=== PATIENT | female | born 1950 | race Caucasian/White ===

== ENCOUNTER 2022-04-23 19:29 | Inpatient (IN) | payer MEDICARE, SELFPAY ==
[2022-04-23 20:01] VITALS: BP 124/84; PULSE 93; RESP 18; TEMP 36.3; O2SAT 98
[2022-04-23 20:35] VITALS: O2SAT 99
--- NOTE | 2022-04-23 20:37 | ED.GENADULT ---
HPI - General Adult General Time Seen by Provider: 20:37 Date Seen: 04/23/22 Chief complaint: Abdominal Pain Stated complaint: stomach pain, vomiting Time Seen by Provider: 04/23/22 20:36 Source: patient Mode of arrival: ambulatory Limitations: no limitations History of Present Illness HPI narrative: 71-year-old female who comes in today with abdominal pain and vomiting. This started 2 days ago. Abdominal pain started 1st followed by vomiting in eating. Patient thinks her last bowel movement was a couple days ago. No blood in. Pain is in the low abdomen mostly but is diffuse. No urinary symptoms. Denies chest pain, shortness of breath, lightheadedness or dizziness. Related Data Home Medications Medication Instructions Recorded Confirmed No Known Home Medications 04/23/22 04/23/22 Allergies Allergy/AdvReac Type Severity Reaction Status Date / Time No Known Drug Allergies Allergy Verified 04/23/22 20:05 [facility] Social History Smoking Status: Never smoker Do you use any of these nicotine containing products: None How often do you have a drink containing alcohol: monthly or less AUDIT-C Alcohol total score: 1 Non-prescribed substance use: denies use service: No Exam Narrative: Exam Narrative: General: Well-developed and well-nourished, no acute distress Head: Atraumatic and normocephalic Eyes: Pupils are equal reactive, extraocular motions intact, conjunctiva clear ENT: External nose and ears are normal, posterior pharynx without erythema or exudate Neck: No midline cervical tenderness, full spontaneous range of motion the neck, trachea midline, no adenopathy Heart: Regular rate and rhythm no murmurs or thrills Lungs: Clear to auscultation bilaterally without wheezes or crackles Abdomen: High-pitched bowel sounds, diffuse tenderness, mild distention Musculoskeletal: No tenderness, deformity, or edema Neurologic: Awake, alert, and oriented x3, no gross focal neurologic deficits, cranial nerves intact as tested Psych: Mood and affect are appropriate Skin: No rashes Const: Vital Signs, click to edit/add: Vital Signs - 24 hr 04/23/22 20:01 Temperature 97.3 F L Pulse Rate [Left F emoral] 93 Respiratory Rate 18 Blood Pressure [Ri ght Upper Arm] 124/84 Pulse Oximetry 98 Oxygen Delivery Me thod Room Air Course Course Hospital Course: Patient seen examined, no prior records available. Presents with abdominal pain and vomiting. Differential diagnosis includes but not limited to acute cholecystitis, bowel obstruction, pancreatitis, diverticulitis, colitis. Patient with history of resection ofintestinal mass?, presents with abdominal pain vomiting. High-pitched bowel sounds with diffuse tenderness. Concern for bowel obstruction. Dilaudid, labs, Zofran, and CT scan are ordered Reevaluation(s) Reevaluation #1: Labs independently interpreted by me demonstrate normal white blood cell count, normal hemoglobin. Total bilirubin is slightly elevated but lipase and remaining hepatic function panel are reassuring. CT scan urinalysis are pending. Time: 21:24 Reevaluation #2: CT scan independently interpreted by me demonstrates small-bowel obstruction. Will plan to admit patient for further evaluation and treatment. Time: 21:43 Reevaluation #3: Radial interpretation CT scan agrees with my initial interpretation. Patient will be admitted for further evaluation and treatment. Care discussed with Dr. Murray, General surgery as well as Dr. Mccabe, hospitalist for admission. Time: 22:35 Vital Signs Vital signs: Initial Vital Signs Temperature 97.3 F L 04/23/22 20:01 Temperature Source Temporal Artery Scan 04/23/22 20:01 Pulse Rate 93 04/23/22 20:01 Pulse Rhythm 04/23/22 20:01 Respiratory Rate 18 04/23/22 20:01 Blood Pressure 124/84 04/23/22 20:01 Blood Pressure Mean 97 04/23/22 20:01 Blood Pressure Position Sitting 04/23/22 20:01 Pulse Oximetry 98 04/23/22 20:01 Oxygen Delivery Method 04/23/22 20:01 Vital Signs Temperature 97.3 F L 04/23/22 20:01 Pulse Rate 93 04/23/22 20:01 Respiratory Rate 18 04/23/22 20:01 Blood Pressure 124/84 04/23/22 20:01 Pulse Oximetry 98 04/23/22 20:01 Oxygen Delivery Method 04/23/22 20:01 Temperature 97.3 F L 04/23/22 20:01 Pulse Rate 93 04/23/22 20:01 Respiratory Rate 18 04/23/22 20:01 Blood Pressure 124/84 04/23/22 20:01 Pulse Oximetry 98 04/23/22 20:01 Oxygen Delivery Method 04/23/22 20:01 Medical Decision Making Lab Data Labs: Lab Results 04/23/22 04/23/22 Range/Units 20:44 20:44 WBC 7.16 (4.50-11.00) K/uL RBC 5.00 (4.00-5.20) m/uL Hgb 15.6 (12.0-16.0) gm/dL Hct 44.7 (33.0-51.0) % MCV 89 (80-100) fL MCH 31 (26-34) pg MCHC 35 (32-36) gm/dL RDW Coeff of Nadeem 11.9 (11.5-15.5) % Plt Count 228 (140-440) K/uL Neut % (Auto) 71.4 (42.0-72.0) % Lymph % (Auto) 13.8 L (20-44) % Grand % (Auto) 14.5 H (0.0-11.0) % Eos % (Auto) 0.1 (0.0-7.0) % Baso % (Auto) 0.1 (0.0-3.0) % Neut # (Auto) 5.10 (1.7-7.0) K/uL Lymph # (Auto) 1.00 (0.90-2.90) K/uL [place] # (Auto) 1.00 H (0.00-0.90) K/UL Eos # (Auto) 0.01 (0.00-0.50) K/uL Baso # (Auto) 0.01 (0.00-0.30) K/uL Sodium 135 (135-149) mmol/L Potassium 4.0 (3.6-5.1) mmol/L Chloride 98 (96-114) mmol/L Carbon Dioxide 28 (20-32) mmol/L BUN 18 (7-30) mg/dL Creatinine 0.7 (0.5-1.5) mg/dL Estimated GFR 93 ml/min Glucose 140 H (60-115) mg/dL Calcium 9.8 (8.4-10.6) mg/dL Total Bilirubin 2.2 H (0.1-1.5) mg/dL Direct Bilirubin 0.0 (0.0-0.5) mg/dL AST 21 (12-35) U/L ALT 17 (4-35) U/L Alkaline Phosphatase 86 (40-150) U/L Total Protein 8.0 (6.0-8.3) g/dL Albumin 4.6 (3.3-5.0) g/dL Lipase 55 (23-300) U/L Discharge Plan Discharge Clinical Impression: SBO (small bowel obstruction) Patient Disposition: Admitted As Inpatient
--- NOTE | 2022-04-23 20:47 | CRLHL7_ITS ---
For Patients: As a result of the Century Cures Act, medical imaging exams and procedure reports are released immediately into your electronic medical record. You may view this report before your referring provider. If you have questions, please contact your health care provider. INDICATION: Abdominal pain, vomiting. TECHNIQUE: CT abdomen and pelvis acquired with 70 cc Isovue 370 IV contrast. COMPARISON: CT abdomen 11/24/2019. FINDINGS: Lower chest: Unremarkable. Liver: Unremarkable. Normal in size and attenuation. No suspicious masses. Gallbladder and bile ducts: Unremarkable. No stones or inflammation. No biliary dilatation. Pancreas: Unremarkable. No mass or inflammation. Spleen: Unremarkable. Normal in size. No masses. Adrenal glands: Unremarkable. No nodules. Kidneys: Unremarkable. No suspicious masses, stones, or hydronephrosis. GI tract: Status post right hemicolectomy. Multiple dilated loops of small bowel with air-fluid levels with transition point in the right lower quadrant in the region of the ileocolonic anastomosis (series 2, image 81). The distal small bowel and colon are decompressed. No evidence of perforation or pneumatosis. Small hiatal hernia. Diverticulosis. Vasculature: Normal caliber abdominal aorta with mild atherosclerotic calcification. Mesenteric arteries are patent. Lymph nodes: No lymphadenopathy. Peritoneum/Abdominal Wall: Small amount ascites. Pelvis: Unremarkable. Bones: Multilevel degenerative changes of the spine. Chronic anterior compression fracture of the T12 vertebral body. IMPRESSION: Small-bowel obstruction in the setting of prior right hemicolectomy. Transition point in the right lower quadrant in the region of the ileocolonic anastomosis. No perforation or pneumatosis. Please note that all CT scans at this facility use dose modulation, iterative reconstruction, and/or weight-based dosing when appropriate to reduce radiation dose to as low as reasonably achievable. Dictated by Zachary Sifuentes MD @ 04/23/2022 10:24:57 PM (Electronically Signed)
[2022-04-23] MEDS: ONDANSETRON 2 MG/ML inj 4 MG IVP (20:56)
[2022-04-23] MEDS: HYDROmorphone 0.5 mg/0.5 ml inj IVP (20:56)
[2022-04-23 21:06] LABS: Basophils Absolute Auto 0.01 K/uL (0.00-0.30); Basophils Percent Auto 0.1 % (0.0-3.0); Eosinophils Absolute Auto 0.01 K/uL (0.00-0.50); Eosinophils Percent Auto 0.1 % (0.0-7.0); Hematocrit 44.7 % (33.0-51.0); Hemoglobin* 15.6 gm/dL (12.0-16.0); Immature Granulocytes Abs Auto 0.01 K/uL (0.00-0.30); Immature Granulocytes Pct Auto 0.1 %; Lymphocytes Percent Auto 13.8 % (20-44); Mean Corpuscular HGB Conc 35 gm/dL (32-36); Mean Corpuscular Hemoglobin 31 pg (26-34); Mean Corpuscular Volume 89 fL (80-100); Monocytes Percent Auto 14.5 % (0.0-11.0); Neutrophils Percent Auto 71.4 % (42.0-72.0); Platelet Count* 228 K/uL (140-440); RDW Coefficient of Variation % 11.9 % (11.5-15.5); White Blood Count* 7.16 K/uL (4.50-11.00)
[2022-04-23 21:07] LABS: Slide Review Reflex No
[2022-04-23 21:12] LABS: Albumin* 4.6 g/dL (3.3-5.0); Chloride* 98 mmol/L (96-114); Sodium* 135 mmol/L (135-149)
[2022-04-23 21:14] LABS: Creatinine* 0.7 mg/dL (0.5-1.5); Estimated Glomerular Filt Rate 93 ml/min
[2022-04-23 21:15] LABS: Alkaline Phosphatase* 86 U/L (40-150); Aspartate Amino Transferase* 21 U/L (12-35); Bilirubin Total* 2.2 mg/dL (0.1-1.5); Blood Urea Nitrogen* 18 mg/dL (7-30); Carbon Dioxide* 28 mmol/L (20-32); Glucose* 140 mg/dL (60-115); Lipase* 55 U/L (23-300)
[2022-04-23 21:16] LABS: Alanine Aminotransferase* 17 U/L (4-35); Calcium* 9.8 mg/dL (8.4-10.6)
[2022-04-23 22:13] LABS: Appearance Urine Clear (Clear); Bilirubin Urine Negative (Negative); Blood Urine Negative (Negative); Color Urine Yellow (Yellow); Glucose Urine Negative (Negative); Ketones Urine 2+ (Negative); Leukocyte Esterase Urine Negative (Negative); Nitrite Urine Negative (Negative); Protein Urine Trace (Negative); Urobilinogen Urine 0.2 (0.2-1.0)
[2022-04-23 22:29] LABS: RBC Urine 0-2 (0-2); Squamous Epithelial Cell Urine Few (None-Few); WBC Urine 0-2 (0-5)
--- NOTE | 2022-04-23 22:46 | ED.NURSE ---
Med Surg called and report given on Room 6. Pt transporting to room 270 at this time. Pt has all belongings with her and will leave once patient is settled in room.
--- NOTE | 2022-04-23 23:30 | P.IMHP_ITS ---
Hospitalist- H&P: HPI History of Present Illness Time Seen by Provider: 23:00 Date Seen: 04/23/22 Chief complaint: stomach pain, vomiting Narrative: Catrachita Roman is a 71 year old woman who presents with 2 days of abdominal pain and subsequent nausea and vomiting. Describes abdominal pain as being low but diffuse. Last bowel movement was 2 days ago on Sunday morning. Has not had constipation, diarrhea, or any blood loss. Denies dysuria, urgency, frequency, hematuria. Denies chest heaviness, pressure, tightness, or pain. Denies cough, dyspnea at rest, paroxysmal nocturnal dyspnea, orthopnea. Denies syncope or near-syncope. Denies palpitations or chest fluttering. Denies fevers, rigors, diaphoresis. Denies weight gain or weight loss. Denies night sweats. Patient and her , Chris, flew back to their home in [place] from [place] this past Sunday, 2 days ago, after the onset of the pain. They had intended to participate in their daughter's surprise birthday alliance party and then fly back to [place] 2 days from now, this coming Sunday. Pain has not improved. She finally decided to come in for further assessment. CT scan in the emergency department demonstrates small bowel obstruction with transition point in the right lower quadrant in the region of the ileocolonic anastomosis. Patient has not previously had bowel obstruction. Review of Systems Status of ROS: Reports: 10 or more systems reviewed and unremarkable except as noted in History and below Narrative: Generally healthy. Independent in all activities. Enjoying her retired life with her retired . They rented house in [place] for 3 months, and have been living in their rented house until they came back now briefly to surprise their daughter for her birthday. Unfortunately they were not able to surprised her with the patient's abdominal pain nausea and vomiting, and thus patient is here in the hospital at this time. Denies polyuria, polydipsia, polyphagia. Denies heat or cold intolerance. No recent trauma or injury. Air travel as specified above. No signs or symptoms of deep venous thrombosis or pulmonary embolism. No recent illnesses. No focal motor neurologic deficits. Denies myalgias or arthralgias. Does not take any [id number] medications. Designates her , Chris, as her power of business attorney for health should that be required. Requests full resuscitation in the event of cardiopulmonary demise. Does not have a primary care physician at this time. 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 Surgical History History of toe surgery Status post LASIK surgery Status post partial colectomy Social History Smoking Status: Never smoker Do you use any of these nicotine containing products: None How often do you have a drink containing alcohol: monthly or less AUDIT-C Alcohol total score: 1 Non-prescribed substance use: denies use service: No Meds Home Medications and Allergies Home Medications Medication Instructions Recorded Confirmed Type No Known Home Medications 04/23/22 04/23/22 History Allergies Allergy/AdvReac Type Severity Reaction Status Date / Time No Known Drug Allergies Allergy Verified 04/23/22 20:05 Exam Narrative: Exam Narrative: Appears comfortable when I see her. No acute distress. Indicates that the opioid analgesics she received greatly relieved her symptoms. Does not have a nasogastric tube in place. Alert, oriented to self, place, time, situation. Friendly, cooperative, articulate. Mood and affect are congruent. Vision and hearing are grossly normal. No icterus or jaundice. Midline nasal septum. Dentition in fair repair. Dry buccal mucosa. Supple neck. Midline trachea. Normal thyroid. No JVD, hepatojugular reflux, carotid bruits. No lymphadenopathy. Lungs are clear to auscultation without wheezing, rhonchi, or rales. No CVA tenderness. Heart tones with regular rhythm, normal S1-S2, without murmur, gallop, or rub. PMI is not laterally displaced. Thin abdomen, moderately distended. Hyper tympany. Tinkles and rushes on auscultation. Minimal subjective discomfort without rebound or guarding. Palpable pulses upper and lower extremities. No lower extremity edema. No rashes, petechiae, cyanosis. No focal motor neurologic deficits. No tremor, asterixis, or ataxia. Independent in transfer, station, and gait. Const: Vital Signs, click to edit/add: Vital Signs - 24 hr 04/23/22 20:01 Temperature 97.3 F L Pulse Rate [Left F emoral] 93 Respiratory Rate 18 Blood Pressure [Ri ght Upper Arm] 124/84 Pulse Oximetry 98 Oxygen Delivery Me thod Room Air Documenting provider has reviewed patient's vital signs: yes Hospitalist - H&P: Result Labs Labs: Short CBC 04/23/22 Range/Units 20:44 WBC 7.16 (4.50-11.00) K/uL Hgb 15.6 (12.0-16.0) gm/dL Hct 44.7 (33.0-51.0) % Plt Count 228 (140-440) K/uL BMP 04/23/22 20:44 Sodium 135 Potassium 4.0 Chloride 98 Carbon Dioxide 28 BUN 18 Creatinine 0.7 Glucose 140 H Calcium 9.8 Liver Function 04/23/22 Range/Units 20:44 Total Bilirubin 2.2 H (0.1-1.5) mg/dL Direct Bilirubin 0.0 (0.0-0.5) mg/dL AST 21 (12-35) U/L ALT 17 (4-35) U/L Alkaline Phosphatase 86 (40-150) U/L Albumin 4.6 (3.3-5.0) g/dL Urine 04/23/22 Range/Units 22:05 Urine Color Yellow (Yellow) Urine Appearance Clear (Clear) Urine pH 7.0 (5.0-8.5) Ur Specific [place] 1.010 (1.000-1.030) Urine Protein Trace A (Negative) Urine Glucose (UA) Negative (Negative) Imaging CT scan - abdomen: Attestation: I have reviewed the pertinent imaging results. Radiologist's impression: Small-bowel obstruction with transition point in right lower quadrant, at site of ileocolonic anastomosis. Assessment and Plan Assessment and plan (1) SBO (small bowel obstruction): Problem comment: Most likely due to and she usually is from partial colectomy in 2010 for tubulovillous adenoma of the colon an incidental resection of a serous cystadenoma of the ovary. Status: Acute Plan 1. Reviewed impression with patient and her . 2. Answered their questions. 3. General surgery, Dr. Boston, has been consulted. 4. Conservative measures including NPO, IV fluids, analgesics, antiemetics. Will attempt to hold off on NG tube for now. 5. Will advance diet slowly as deemed possible per her clinical status. 6. Nonpharmacologic venous thromboembolism prophylaxis efforts including ambulation. 7. Patient and are agreeable to above stated plans and recommendations at this juncture.
[2022-04-23 23:33] VITALS: BP 137/77; PULSE 68; RESP 16; TEMP 36.6; O2SAT 94; BMI 23.5
[2022-04-24] VITALS (8 sets, daily range): BP systolic 106–151; BP diastolic 54–75; PULSE 63–82; RESP 16–18; TEMP 36.4–36.9; O2SAT 92–97
[2022-04-24 01:09] LABS: SARS PCR* Negative SARS-CoV-2 (Negative)
[2022-04-24] MEDS: 0.9 % SODIUM CHLORIDE 1000 ml 1,000 ML IV (01:37)
[2022-04-24] MEDS: LACTATED RINGERS 1000 ML 1,000 ML 125 ML IV ×3 (02:39→18:04)
--- NOTE | 2022-04-24 06:34 | PC.NURSE ---
VSS on RA. Patient is alert and oriented x3, able to call help. Pt denies pain, last pain meds at ED. Independent with transfers, continent of bowel and bladder; no BM this shift. IV fluid infusing @125ml/h.
[2022-04-24 06:41] LABS: Lactate* 0.8 mmol/L (0.5-1.9)
[2022-04-24 06:48] LABS: Eosinophils Absolute Auto 0.02 K/uL (0.00-0.50); Eosinophils Percent Auto 0.4 % (0.0-7.0); Hematocrit 37.4 % (33.0-51.0); Hemoglobin* 12.7 gm/dL (12.0-16.0); Lymphocytes Percent Auto 18.6 % (20-44); Mean Corpuscular HGB Conc 34 gm/dL (32-36); Mean Corpuscular Hemoglobin 31 pg (26-34); Mean Corpuscular Volume 92 fL (80-100); Monocytes Percent Auto 17.7 % (0.0-11.0); Neutrophils Absolute Auto 3.43 K/uL (1.7-7.0); Neutrophils Percent Auto 63.3 % (42.0-72.0); Platelet Count* 188 K/uL (140-440); RDW Coefficient of Variation % 12.2 % (11.5-15.5); Red Blood Count 4.07 m/uL (4.00-5.20); White Blood Count* 5.42 K/uL (4.50-11.00)
[2022-04-24 06:59] LABS: Slide Review Reflex No
[2022-04-24 07:14] LABS: Albumin* 3.5 g/dL (3.3-5.0); Chloride* 104 mmol/L (96-114); Sodium* 137 mmol/L (135-149)
[2022-04-24 07:15] LABS: Potassium* 4.2 mmol/L (3.6-5.1)
[2022-04-24 07:17] LABS: Creatinine* 0.6 mg/dL (0.5-1.5); Estimated Glomerular Filt Rate 97 ml/min
[2022-04-24 07:18] LABS: Alanine Aminotransferase* 13 U/L (4-35); Alkaline Phosphatase* 57 U/L (40-150); Aspartate Amino Transferase* 18 U/L (12-35); Bilirubin Total* 1.4 mg/dL (0.1-1.5); Blood Urea Nitrogen* 16 mg/dL (7-30); Calcium* 8.5 mg/dL (8.4-10.6); Carbon Dioxide* 30 mmol/L (20-32); Glucose* 105 mg/dL (60-115); Lipase* 110 U/L (23-300)
[2022-04-24 07:21] LABS: C Reactive Protein* 3.9 mg/dL (0.5-1.0)
--- NOTE | 2022-04-24 07:58 | P.IMPN_ITS ---
Progress Note: A&P Assessment and plan (1) SBO (small bowel obstruction): Problem details: - history of partial colectomy in 2010 for tubulovillous adenoma of the colon + incidental resection of a serous cystadenoma of the ovary - patient remains NPO, has not required NG placement at this time - general surgery aware of patient, appreciate their assistance Status: Acute Plan - per above - SCDs, Sixto richards, ambulation for ppx Subjective Date Seen: 04/24/22 Interval history: Catrachita was admitted last night for an SBO. She has had no further nausea or vomiting upon arrival to the floor, did not require NG placement. She has not yet passed flatus. No concerns for hospitalist team. Exam Narrative: Exam Narrative: GEN: Alert and sitting comfortably in bed, nontoxic HEENT: Normal external ears, EOMIs bilaterally, no scleral icterus CV: RRR, No concerning murmurs, rubs, or gallops R: LCTA bilaterally without concerning wheezing, rales, or rhonchi Ab: Moderate distention, hypoactive bowel sounds throughout Ext: wwp, no concerning edema Skin: No concerning skin lesions or rashes on exposed skin Neuro: Nonfocal Psych: Appropriate Const: Vital Signs, click to edit/add: Vital Signs - 24 hr 04/23/22 20:01 04/23/22 23:33 04/23/22 23:33 Temperature 97.3 F L 97.8 F Pulse Rate [Left F emoral] 93 Pulse Rate [Right] 68 Respiratory Rate 18 16 Blood Pressure [Le ft Arm] 137/77 Blood Pressure [Ri ght Upper Arm] 124/84 Pulse Oximetry 98 94 Oxygen Delivery Me thod Room Air Room Air Room Air 04/24/22 03:00 Temperature 98.4 F Pulse Rate [Left F emoral] Pulse Rate [Right] 70 Respiratory Rate 16 Blood Pressure [Le ft Arm] 117/67 Blood Pressure [Ri ght Upper Arm] Pulse Oximetry 95 Oxygen Delivery Me thod Room Air Labs Labs: Laboratory Results - last 24 hr 04/23/22 04/23/22 04/23/22 20:44 20:44 22:05 WBC 7.16 RBC 5.00 Hgb 15.6 Hct 44.7 MCV 89 MCH 31 MCHC 35 RDW Coeff of Nadeem 11.9 Plt Count 228 Neut % (Auto) 71.4 Lymph % (Auto) 13.8 L [place] % (Auto) 14.5 H Eos % (Auto) 0.1 Baso % (Auto) 0.1 Neut # (Auto) 5.10 Lymph # (Auto) 1.00 [place] # (Auto) 1.00 H Eos # (Auto) 0.01 Baso # (Auto) 0.01 Sodium 135 Potassium 4.0 Chloride 98 Carbon Dioxide 28 BUN 18 Creatinine 0.7 Estimated Creat Clear Estimated GFR 93 Glucose 140 H Lactate Calcium 9.8 Total Bilirubin 2.2 H Direct Bilirubin 0.0 AST 21 ALT 17 Alkaline Phosphatase 86 C-Reactive Protein Total Protein 8.0 Albumin 4.6 Lipase 55 Urine Color Yellow Urine Appearance Clear Urine pH 7.0 Ur Specific [place] 1.010 Urine Protein Trace A Urine Glucose (UA) Negative Urine Ketones 2+ A Urine Blood Negative Urine Nitrite Negative Urine Bilirubin Negative Urine Urobilinogen 0.2 Ur Leukocyte Esterase Negative Urine RBC 0-2 Urine WBC 0-2 Ur Squamous Epith Cells Few Urine Bacteria None SARS-CoV-2 (PCR) 04/24/22 04/24/22 04/24/22 00:24 05:55 05:55 WBC 5.42 RBC 4.07 Hgb 12.7 Hct 37.4 MCV 92 MCH 31 MCHC 34 RDW Coeff of Nadeem 12.2 Plt Count 188 Neut % (Auto) 63.3 Lymph % (Auto) 18.6 L [place] % (Auto) 17.7 H Eos % (Auto) 0.4 Baso % (Auto) 0.0 Neut # (Auto) 3.43 Lymph # (Auto) 1.00 [place] # (Auto) 1.00 H Eos # (Auto) 0.02 Baso # (Auto) 0.00 Sodium 137 Potassium 4.2 Chloride 104 Carbon Dioxide 30 BUN 16 Creatinine 0.6 Estimated Creat Clear 49.00 Estimated GFR 97 Glucose 105 Lactate Calcium 8.5 Total Bilirubin 1.4 Direct Bilirubin 0.0 AST 18 ALT 13 Alkaline Phosphatase 57 C-Reactive Protein 3.9 H Total Protein 6.0 Albumin 3.5 Lipase 110 Urine Color Urine Appearance Urine pH Ur Specific [place] Urine Protein Urine Glucose (UA) Urine Ketones Urine Blood Urine Nitrite Urine Bilirubin Urine Urobilinogen Ur Leukocyte Esterase Urine RBC Urine WBC Ur Squamous Epith Cells Urine Bacteria SARS-CoV-2 (PCR) Negative SARS-CoV-2 04/24/22 05:55 WBC RBC Hgb Hct MCV MCH MCHC RDW Coeff of Nadeem Plt Count Neut % (Auto) Lymph % (Auto) [place] % (Auto) Eos % (Auto) Baso % (Auto) Neut # (Auto) Lymph # (Auto) [place] # (Auto) Eos # (Auto) Baso # (Auto) Sodium Potassium Chloride Carbon Dioxide BUN Creatinine Estimated Creat Clear Estimated GFR Glucose Lactate 0.8 Calcium Total Bilirubin Direct Bilirubin AST ALT Alkaline Phosphatase C-Reactive Protein Total Protein Albumin Lipase Urine Color Urine Appearance Urine pH Ur Specific [place] Urine Protein Urine Glucose (UA) Urine Ketones Urine Blood Urine Nitrite Urine Bilirubin Urine Urobilinogen Ur Leukocyte Esterase Urine RBC Urine WBC Ur Squamous Epith Cells Urine Bacteria SARS-CoV-2 (PCR) INDICATION: Abdominal pain, vomiting. TECHNIQUE: CT abdomen and pelvis acquired with 70 cc Isovue 370 IV contrast. COMPARISON: CT abdomen 11/24/2019. FINDINGS: Lower chest: Unremarkable. Liver: Unremarkable. Normal in size and attenuation. No suspicious masses. Gallbladder and bile ducts: Unremarkable. No stones or inflammation. No biliary dilatation. Pancreas: Unremarkable. No mass or inflammation. Spleen: Unremarkable. Normal in size. No masses. Adrenal glands: Unremarkable. No nodules. Kidneys: Unremarkable. No suspicious masses, stones, or hydronephrosis. GI tract: Status post right hemicolectomy. Multiple dilated loops of small bowel with air-fluid levels with transition point in the right lower quadrant in the region of the ileocolonic anastomosis (series 2, image 81). The distal small bowel and colon are decompressed. No evidence of perforation or pneumatosis. Small hiatal hernia. Diverticulosis. Vasculature: Normal caliber abdominal aorta with mild atherosclerotic calcification. Mesenteric arteries are patent. Lymph nodes: No lymphadenopathy. Peritoneum/Abdominal Wall: Small amount ascites. Pelvis: Unremarkable. Bones: Multilevel degenerative changes of the spine. Chronic anterior compression fracture of the T12 vertebral body. IMPRESSION: Small-bowel obstruction in the setting of prior right hemicolectomy. Transition point in the right lower quadrant in the region of the ileocolonic anastomosis. No perforation or pneumatosis. Please note that all CT scans at this facility use dose modulation, iterative reconstruction, and/or weight-based dosing when appropriate to reduce radiation dose to as low as reasonably achievable.
--- NOTE | 2022-04-24 11:26 | PM.GSCN ---
History of Present Illness Consult details Date Seen: 04/24/22 Consult date: 04/24/22 Narrative: 71-year-old female was admitted to the hospital with small-bowel obstruction and I was asked by Dr. Flores to see her in consultation. Patient states that on Sunday she woke up with lower abdominal pain that was described as crampy. She was flying home from [place] and the pain was bothering her the entire day. She vomited in the evening on Sunday. On Sunday she continued not to feel well and continued to have abdominal pain and nausea. She was not passing gas. Finally on Sunday she vomited again and decided to come to the emergency room because her pain was persistent. Patient had no prior episodes of small-bowel obstruction. Patient had a right hemicolectomy in 2009 for a large tubulovillous adenoma of the cecum. There was no evidence of malignancy. Patient's last colonoscopy was in April of 2020 and her anastomosis was patent. Two polyps were removed during that colonoscopy. In the emergency room patient was found to have normal WBC. An abdominal CT was obtained that showed evidence of right hemicolectomy with distended loops of small intestine proximal to her anastomosis. The radiology felt that transition point is somewhere near her anastomosis in the right lower quadrant. Since patient was admitted, her pain is better compared to yesterday. She still is not passing gas. 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 Surgical History (Updated 04/24/22 @ 11:30 by Anahi Boston MD) History of toe surgery Status post LASIK surgery Status post partial colectomy Social History Highest level of school completed/degree received: Bachelor's degree Smoking Status: Never smoker Do you use any of these nicotine containing products: None Second hand tobacco smoke exposure: No How often do you have a drink containing alcohol: monthly or less Alcohol type: beer How many standard drinks containing alcohol do you have on a typical day: 1 or 2 How often do you have six or more drinks on one occasion: Less than monthly AUDIT-C Alcohol total score: 2 Non-prescribed substance use: denies use Caffeine: Yes service: No Meds Home Medications and Allergies Home Medications Medication Instructions Recorded Confirmed Type No Known Home Medications 04/23/22 04/23/22 History Allergies Allergy/AdvReac Type Severity Reaction Status Date / Time No Known Drug Allergies Allergy Verified 04/23/22 20:05 Exam Narrative: Exam Narrative: General appearance: Alert, cooperative, and in no distress Pulmonary: Chest symmetric, breathing is nonlabored Gastrointestinal Abdominal: soft, mildly distended, tender to palpation near the umbilicus with no peritoneal signs. Skin: Normal skin color, texture, and turgor. No rashes or lesions. Psychiatric: Alert, cooperative, normal affect. Const: Vital Signs, click to edit/add: Vital Signs - 24 hr 04/23/22 20:01 04/23/22 23:33 04/23/22 23:33 Temperature 97.3 F L 97.8 F Pulse Rate [Left F emoral] 93 Pulse Rate [Right] 68 Respiratory Rate 18 16 Blood Pressure [Le ft Arm] 137/77 Blood Pressure [Ri ght Upper Arm] 124/84 Pulse Oximetry 98 94 Oxygen Delivery Me thod Room Air Room Air Room Air 04/24/22 03:00 Temperature 98.4 F Pulse Rate [Left F emoral] Pulse Rate [Right] 70 Respiratory Rate 16 Blood Pressure [Le ft Arm] 117/67 Blood Pressure [Ri ght Upper Arm] Pulse Oximetry 95 Oxygen Delivery Me thod Room Air Results Labs Labs: Abnormal lab results 04/23/22 04/23/22 04/23/22 Range/Units 20:44 20:44 22:05 Lymph % (Auto) 13.8 L (20-44) % [place] % (Auto) 14.5 H (0.0-11.0) % [place] # (Auto) 1.00 H (0.00-0.90) K/UL Glucose 140 H (60-115) mg/dL Total Bilirubin 2.2 H (0.1-1.5) mg/dL C-Reactive Protein (0.5-1.0) mg/dL Urine Protein Trace A (Negative) Urine Ketones 2+ A (Negative) 04/24/22 04/24/22 Range/Units 05:55 05:55 Lymph % (Auto) 18.6 L (20-44) % [place] % (Auto) 17.7 H (0.0-11.0) % [place] # (Auto) 1.00 H (0.00-0.90) K/UL Glucose (60-115) mg/dL Total Bilirubin (0.1-1.5) mg/dL C-Reactive Protein 3.9 H (0.5-1.0) mg/dL Urine Protein (Negative) Urine Ketones (Negative) Diabetes panel 04/23/22 04/24/22 Range/Units 20:44 05:55 Sodium 135 137 (135-149) mmol/L Potassium 4.0 4.2 (3.6-5.1) mmol/L Chloride 98 104 (96-114) mmol/L Carbon Dioxide 28 30 (20-32) mmol/L BUN 18 16 (7-30) mg/dL Creatinine 0.7 0.6 (0.5-1.5) mg/dL Glucose 140 H 105 (60-115) mg/dL Calcium 9.8 8.5 (8.4-10.6) mg/dL AST 21 18 (12-35) U/L ALT 17 13 (4-35) U/L Alkaline Phosphatase 86 57 (40-150) U/L Total Protein 8.0 6.0 (6.0-8.3) g/dL Albumin 4.6 3.5 (3.3-5.0) g/dL Calcium panel 04/23/22 04/24/22 Range/Units 20:44 05:55 Calcium 9.8 8.5 (8.4-10.6) mg/dL Albumin 4.6 3.5 (3.3-5.0) g/dL Pituitary panel 04/23/22 04/24/22 Range/Units 20:44 05:55 Sodium 135 137 (135-149) mmol/L Potassium 4.0 4.2 (3.6-5.1) mmol/L Chloride 98 104 (96-114) mmol/L Carbon Dioxide 28 30 (20-32) mmol/L BUN 18 16 (7-30) mg/dL Creatinine 0.7 0.6 (0.5-1.5) mg/dL Glucose 140 H 105 (60-115) mg/dL Calcium 9.8 8.5 (8.4-10.6) mg/dL Adrenal panel 04/23/22 04/24/22 Range/Units 20:44 05:55 Sodium 135 137 (135-149) mmol/L Potassium 4.0 4.2 (3.6-5.1) mmol/L Chloride 98 104 (96-114) mmol/L Carbon Dioxide 28 30 (20-32) mmol/L BUN 18 16 (7-30) mg/dL Creatinine 0.7 0.6 (0.5-1.5) mg/dL Glucose 140 H 105 (60-115) mg/dL Calcium 9.8 8.5 (8.4-10.6) mg/dL Total Bilirubin 2.2 H 1.4 (0.1-1.5) mg/dL AST 21 18 (12-35) U/L ALT 17 13 (4-35) U/L Alkaline Phosphatase 86 57 (40-150) U/L Total Protein 8.0 6.0 (6.0-8.3) g/dL Albumin 4.6 3.5 (3.3-5.0) g/dL All other labs normal. Assessment and Plan Assessment and plan (1) SBO (small bowel obstruction): Problem comment: - history of partial colectomy in 2010 for tubulovillous adenoma of the colon + incidental resection of a serous cystadenoma of the ovary - patient remains NPO, has not required NG placement at this time - general surgery aware of patient, appreciate their assistance Status: Acute Plan 71-year-old female admitted to the hospital with small-bowel obstruction. Discussed with the patient and her my clinical findings. Patient's pain is slightly improved when compared to yesterday. Her WBC continues to be normal. Patient denies passing gas. I would recommend to continue conservative treatment with NPO and IV fluids for now.
--- NOTE | 2022-04-24 18:30 | PC.NURSE ---
PATIENT PLEASANT AND COOPERATIVE, ALERT AND ORIENTED, UP IND WITH STEADY GAIT WALKING IN HALLWAYS, DECLINING PAIN USING AQUA K PAD NEEDED FOR COMFORT, NPO, TOLREATING ICE CHIPS, BOWEL SOUNDS ACTIVE EXPECT FOR IN LLQ ABSENT, DENIES PASSING GAS, DECLINING NAUSEA.
[2022-04-25] MEDS: LACTATED RINGERS 1000 ML 1,000 ML 125 ML IV ×3 (01:47→17:24)
[2022-04-25 01:53] VITALS: BP 124/68; PULSE 70; RESP 16; TEMP 36.9; O2SAT 94
--- NOTE | 2022-04-25 02:58 | PC.NURSE ---
Pt rested well this night. Up IND and walking halls. No N/V. Reporting zero pain. Afebrile. VS unremarkable. BS absent in Lower left Quad.
[2022-04-25 07:00] VITALS: BP 96/64; PULSE 69; RESP 16; TEMP 36.4; O2SAT 96
[2022-04-25 07:08] LABS: Basophils Percent Auto 0.3 % (0.0-3.0); Eosinophils Percent Auto 2.3 % (0.0-7.0); Hematocrit 35.3 % (33.0-51.0); Immature Granulocytes Pct Auto 0.5 %; Lymphocytes Percent Auto 20.6 % (20-44); Mean Corpuscular HGB Conc 34 gm/dL (32-36); Mean Corpuscular Hemoglobin 31 pg (26-34); Mean Corpuscular Volume 92 fL (80-100); Monocytes Percent Auto 15.9 % (0.0-11.0); Neutrophils Percent Auto 60.4 % (42.0-72.0); Platelet Count* 167 K/uL (140-440); RDW Coefficient of Variation % 11.7 % (11.5-15.5); Red Blood Count 3.85 m/uL (4.00-5.20); White Blood Count* 3.84 K/uL (4.50-11.00)
[2022-04-25 07:10] LABS: Slide Review Reflex No
[2022-04-25 07:22] LABS: Albumin* 3.2 g/dL (3.3-5.0); Chloride* 106 mmol/L (96-114)
[2022-04-25 07:23] LABS: Potassium* 3.7 mmol/L (3.6-5.1); Sodium* 137 mmol/L (135-149)
[2022-04-25 07:25] LABS: Alkaline Phosphatase* 58 U/L (40-150); Aspartate Amino Transferase* 17 U/L (12-35); Bilirubin Total* 1.5 mg/dL (0.1-1.5); Carbon Dioxide* 26 mmol/L (20-32); Creatinine* 0.6 mg/dL (0.5-1.5); Estimated Glomerular Filt Rate 97 ml/min; Total Protein* 5.6 g/dL (6.0-8.3)
[2022-04-25 07:26] LABS: Alanine Aminotransferase* 12 U/L (4-35); Blood Urea Nitrogen* 12 mg/dL (7-30); Calcium* 8.4 mg/dL (8.4-10.6); Glucose* 75 mg/dL (60-115)
--- NOTE | 2022-04-25 08:47 | PM.IMPN1 ---
Progress Note: A&P Assessment and plan (1) SBO (small bowel obstruction): Problem details: - history of partial colectomy in 2010 for tubulovillous adenoma of the colon + incidental resection of a serous cystadenoma of the ovary - patient remains NPO, has not required NG placement - ambulating - general surgery aware of patient, no surgical needs anticipated at this time Status: Acute Plan - per above - Lovenox for ppx Subjective Date Seen: 04/25/22 Interval history: Catrachita was admitted 04/23 for an SBO. She has not yet passed flatus, but is noting more noise from her abdomen. No nausea or vomiting, tolerating NPO status. Exam Narrative: Exam Narrative: GEN: Alert and sitting comfortably in bedside chair, nontoxic in appearance HEENT: Normal external ears, EOMIs bilaterally, no scleral icterus CV: RRR, No concerning murmurs, rubs, or gallops R: LCTA bilaterally without concerning wheezing, rales, or rhonchi Ab: Moderate distention, bowel sounds still hypoactive but improved from admission, Ext: wwp, no concerning edema Skin: No concerning skin lesions or rashes on exposed skin Neuro: Nonfocal Psych: Appropriate Const: Vital Signs, click to edit/add: Vital Signs - 24 hr 04/24/22 11:00 04/24/22 15:00 04/24/22 15:00 Temperature 98.2 F 97.9 F Pulse Rate [Right] 68 76 Respiratory Rate 18 16 16 Blood Pressure [Le ft Arm] 122/70 106/54 L Pulse Oximetry 93 92 92 Oxygen Delivery Me thod Room Air Room Air Room Air 04/24/22 19:33 04/24/22 22:16 04/24/22 22:53 Temperature 98.2 F 98.5 F Pulse Rate [Right] 82 63 63 Respiratory Rate 16 16 16 Blood Pressure [Le ft Arm] 151/75 H 137/74 Pulse Oximetry 96 97 Oxygen Delivery Me thod Room Air Room Air 04/24/22 22:55 04/25/22 01:53 04/25/22 07:00 Temperature 98.5 F Pulse Rate [Right] 70 Respiratory Rate 16 16 16 Blood Pressure [Le ft Arm] 124/68 Pulse Oximetry 97 94 96 Oxygen Delivery Me thod Room Air Room Air Room Air 04/25/22 07:00 Temperature 97.6 F Pulse Rate [Right] 69 Respiratory Rate 16 Blood Pressure [Le ft Arm] 96/64 Pulse Oximetry 96 Oxygen Delivery Me thod Room Air Labs Labs: Laboratory Results - last 24 hr 04/25/22 04/25/22 06:30 06:30 WBC 3.84 L RBC 3.85 L Hgb 12.0 Hct 35.3 MCV 92 MCH 31 MCHC 34 RDW Coeff of Nadeem 11.7 Plt Count 167 Neut % (Auto) 60.4 Lymph % (Auto) 20.6 [place] % (Auto) 15.9 H Eos % (Auto) 2.3 Baso % (Auto) 0.3 Neut # (Auto) 2.30 Lymph # (Auto) 0.80 L [place] # (Auto) 0.60 Eos # (Auto) 0.10 Baso # (Auto) 0.00 Sodium 137 Potassium 3.7 Chloride 106 Carbon Dioxide 26 BUN 12 Creatinine 0.6 Estimated Creat Clear 49.00 Estimated GFR 97 Glucose 75 Calcium 8.4 Total Bilirubin 1.5 AST 17 ALT 12 Alkaline Phosphatase 58 C-Reactive Protein 2.0 H Total Protein 5.6 L Albumin 3.2 L
[2022-04-25 10:51] VITALS: BP 95/61; PULSE 69; RESP 16; TEMP 36.5; O2SAT 94
[2022-04-25 15:00] VITALS: BP 154/73; PULSE 70; RESP 16; TEMP 36.5; O2SAT 70; O2SAT 96
--- NOTE | 2022-04-25 16:18 | PC.NURSE ---
PATIENT ALERT AND ORIENTED, PLEASANT AND COOPERATIVE, UP IND WITH STEADY GAIT, WALKING IN HALLWAYS THROUGHOUT SHIFT, TOOK A SHOWER TODAY, USING AQUA K PAD FOR DISCOMFORT OTHERWISE DECLINING PAIN, TOLERATING OCCASIONAL ICE CHIPS I'M USING THEM TO WET MT WHISTLE, BOWEL SOUNDS ACTIVE/HYPOACTIVE, PATIENT SATS AT TIMES SHE FEELS LIKE BURPING BUT NO PASSING OF FLATUS.
[2022-04-25 19:57] VITALS: BP 146/78; PULSE 72; RESP 18; TEMP 36.6; O2SAT 97
[2022-04-25 23:38] VITALS: BP 125/70; PULSE 75; RESP 16; TEMP 36.6; O2SAT 94
[2022-04-26] VITALS (7 sets, daily range): BP systolic 119–155; BP diastolic 69–76; PULSE 63–66; RESP 16–18; TEMP 36.5–37.1; O2SAT 94–97
[2022-04-26] MEDS: LACTATED RINGERS 1000 ML 1,000 ML 125 ML IV ×3 (01:22→17:26)
--- NOTE | 2022-04-26 04:58 | PC.NURSE ---
pt is A&O. NPO with only ice chips. Bowel sounds hypo active in all four quads. No reports of flatus or BM. LR running at 125. Independent in room. No c/o nausea or pain this shift. Pt only stated she had more of a discomfort in her abdomen. Refused Lovenox. Stated she is walking frequently down the green.
[2022-04-26 06:17] LABS: Eosinophils Percent Auto 1.8 % (0.0-7.0); Hematocrit 34.3 % (33.0-51.0); Hemoglobin* 11.9 gm/dL (12.0-16.0); Immature Granulocytes Pct Auto 1.5 %; Lymphocytes Percent Auto 22.5 % (20-44); Mean Corpuscular HGB Conc 35 gm/dL (32-36); Mean Corpuscular Hemoglobin 32 pg (26-34); Mean Corpuscular Volume 91 fL (80-100); Monocytes Percent Auto 17.1 % (0.0-11.0); Neutrophils Percent Auto 57.1 % (42.0-72.0); Platelet Count* 166 K/uL (140-440); RDW Coefficient of Variation % 11.5 % (11.5-15.5); Red Blood Count 3.76 m/uL (4.00-5.20); White Blood Count* 3.91 K/uL (4.50-11.00)
[2022-04-26 06:25] LABS: Albumin* 3.1 g/dL (3.3-5.0); Chloride* 105 mmol/L (96-114); Sodium* 137 mmol/L (135-149)
[2022-04-26 06:28] LABS: Bilirubin Total* 1.5 mg/dL (0.1-1.5); Creatinine* 0.6 mg/dL (0.5-1.5); Estimated Glomerular Filt Rate 97 ml/min
[2022-04-26 06:29] LABS: Alanine Aminotransferase* 14 U/L (4-35); Alkaline Phosphatase* 56 U/L (40-150); Aspartate Amino Transferase* 21 U/L (12-35); Blood Urea Nitrogen* 11 mg/dL (7-30); Calcium* 8.2 mg/dL (8.4-10.6); Carbon Dioxide* 25 mmol/L (20-32); Glucose* 68 mg/dL (60-115); Potassium* 3.8 mmol/L (3.6-5.1); Total Protein* 5.4 g/dL (6.0-8.3)
[2022-04-26 06:32] LABS: C Reactive Protein* 1.7 mg/dL (0.5-1.0)
[2022-04-26 07:56] LABS: Slide Review Reflex No
[2022-04-26] MEDS: SODIUM CHLORIDE 0.9 % (FLUSH) 10 ML SYRINGE 5 ML IVF ×2 (08:05→20:26)
--- NOTE | 2022-04-26 10:24 | PM.GSPN ---
Subjective Subjective Date Seen: 04/26/22 Interval history: Patient states that she had small amount of mucus, from her rectum. She denies passing gas or stool. She denies any nausea vomiting. She continues to be bloated. She is ambulating a lot. Took a shower today. Exam Narrative: Exam Narrative: Abdomen: Soft, distended, minimal discomfort to palpation throughout the abdomen with no peritoneal signs. Const: Vital Signs, click to edit/add: Vital Signs - 24 hr 04/25/22 10:51 04/25/22 15:00 04/25/22 15:00 Temperature 97.7 F 97.7 F Pulse Rate [Right] 69 70 Respiratory Rate 16 16 16 Blood Pressure [Le ft Arm] 95/61 154/73 H Pulse Oximetry 94 96 70 L Oxygen Delivery Me thod Room Air Room Air Room Air 04/25/22 19:57 04/25/22 23:38 04/25/22 23:38 Temperature 97.9 F 97.8 F Pulse Rate [Right] 72 75 Respiratory Rate 18 16 Blood Pressure [Le ft Arm] 146/78 H 125/70 Pulse Oximetry 97 94 94 Oxygen Delivery Me thod Room Air Room Air Room Air 04/26/22 03:21 04/26/22 07:45 04/26/22 07:45 Temperature 97.9 F 98.7 F Pulse Rate [Right] 65 63 Respiratory Rate 18 16 Blood Pressure [Le ft Arm] 145/76 H 119/69 Pulse Oximetry 96 94 94 Oxygen Delivery Me thod Room Air Room Air Room Air Progress Note: A&P Assessment and plan (1) SBO (small bowel obstruction): Problem details: - history of partial colectomy in 2010 for tubulovillous adenoma of the colon + incidental resection of a serous cystadenoma of the ovary - patient remains NPO, has not required NG placement - ambulating - general surgery aware of patient, no surgical needs anticipated at this time Status: Acute Assessment and Plan: 71-year-old female admitted to the hospital with small-bowel obstruction. Patient is doing well however there is no return of bowel function. Her WBC is normal. Her CRP is decreasing. We will continue with conservative therapy for now with NPO and IV fluids.
--- NOTE | 2022-04-26 12:37 | PM.IMPN1 ---
Progress Note: A&P Assessment and plan (1) SBO (small bowel obstruction): Problem details: - history of partial colectomy in 2010 for tubulovillous adenoma of the colon + incidental resection of a serous cystadenoma of the ovary - patient remains NPO, has not required NG placement - ambulating - general surgery aware of patient, appreciate their input. No surgical needs anticipated at this time Status: Acute Plan - per above - patient defers Lovenox for prophylaxis; is ambulating regularly and using Sixto hose + SCDs while in bed - home with spouse when bowel function returns Subjective Date Seen: 04/26/22 Interval history: Catrachita was admitted 04/23 for an SBO. She has been ambulating and performing ADLs without significant pain or nausea. She still has not yet passed flatus, but continues to note increased bowel sounds. Tolerating NPO status. Exam Narrative: Exam Narrative: GEN: Alert and oriented, nontoxic in appearance HEENT: Normal external ears, EOMIs bilaterally, no scleral icterus CV: RRR, No concerning murmurs, rubs, or gallops R: LCTA bilaterally without concerning wheezing, rales, or rhonchi Ab: Distended, hyperactive bowel sounds throughout Ext: wwp, no concerning edema Skin: No concerning skin lesions or rashes on exposed skin Neuro: Nonfocal Psych: Appropriate Const: Vital Signs, click to edit/add: Vital Signs - 24 hr 04/25/22 15:00 04/25/22 15:00 04/25/22 19:57 Temperature 97.7 F 97.9 F Pulse Rate [Right] 70 72 Respiratory Rate 16 16 18 Blood Pressure [Le ft Arm] 154/73 H 146/78 H Pulse Oximetry 96 70 L 97 Oxygen Delivery Me thod Room Air Room Air Room Air 04/25/22 23:38 04/25/22 23:38 04/26/22 03:21 Temperature 97.8 F 97.9 F Pulse Rate [Right] 75 65 Respiratory Rate 16 18 Blood Pressure [Le ft Arm] 125/70 145/76 H Pulse Oximetry 94 94 96 Oxygen Delivery Me thod Room Air Room Air Room Air 04/26/22 07:45 04/26/22 07:45 04/26/22 11:00 Temperature 98.7 F 97.9 F Pulse Rate [Right] 63 66 Respiratory Rate 16 16 Blood Pressure [Le ft Arm] 119/69 122/73 Pulse Oximetry 94 94 96 Oxygen Delivery Me thod Room Air Room Air Room Air Labs Labs: Laboratory Results - last 24 hr 04/26/22 04/26/22 06:02 06:02 WBC 3.91 L RBC 3.76 L Hgb 11.9 L Hct 34.3 MCV 91 MCH 32 MCHC 35 RDW Coeff of Nadeem 11.5 Plt Count 166 Neut % (Auto) 57.1 Lymph % (Auto) 22.5 [place] % (Auto) 17.1 H Eos % (Auto) 1.8 Baso % (Auto) 0.0 Neut # (Auto) 2.20 Lymph # (Auto) 0.90 [place] # (Auto) 0.70 Eos # (Auto) 0.10 Baso # (Auto) 0.00 Sodium 137 Potassium 3.8 Chloride 105 Carbon Dioxide 25 BUN 11 Creatinine 0.6 Estimated Creat Clear 49.00 Estimated GFR 97 Glucose 68 Calcium 8.2 L Total Bilirubin 1.5 AST 21 ALT 14 Alkaline Phosphatase 56 C-Reactive Protein 1.7 H Total Protein 5.4 L Albumin 3.1 L
[2022-04-26] MEDS: ENOXAPARIN 40 MG/0.4 ML INJ SUBCUT (20:24)
[2022-04-27] MEDS: LACTATED RINGERS 1000 ML 1,000 ML 125 ML IV (01:15)
[2022-04-27 03:00] VITALS: BP 129/69; PULSE 80; RESP 16; TEMP 36.6; O2SAT 95
[2022-04-27 06:40] LABS: Basophils Percent Auto 0.2 % (0.0-3.0); Eosinophils Percent Auto 1.2 % (0.0-7.0); Immature Granulocytes Pct Auto 1.2 %; Lymphocytes Percent Auto 19.5 % (20-44); Mean Corpuscular HGB Conc 34 gm/dL (32-36); Mean Corpuscular Hemoglobin 31 pg (26-34); Mean Corpuscular Volume 91 fL (80-100); Monocytes Percent Auto 17.1 % (0.0-11.0); Neutrophils Percent Auto 60.8 % (42.0-72.0); Platelet Count* 189 K/uL (140-440); RDW Coefficient of Variation % 11.7 % (11.5-15.5); Red Blood Count 3.86 m/uL (4.00-5.20); White Blood Count* 4.26 K/uL (4.50-11.00)
[2022-04-27 06:43] LABS: Slide Review Reflex No
--- NOTE | 2022-04-27 06:53 | PC.NURSE ---
VSS on Ra. Patient is alert and oriented x4, able to verbalize needs to staff. Denies pain on assessment. Pt is continent with bowel and bladder, no BM, was able to pass gas this morning. Independent and ambulates frequently. IN fluid infusing. Pt is stable, call light with in reach.
[2022-04-27 06:54] LABS: Chloride* 104 mmol/L (96-114); Sodium* 136 mmol/L (135-149)
[2022-04-27 06:56] LABS: Creatinine* 0.5 mg/dL (0.5-1.5); Estimated Glomerular Filt Rate 101 ml/min
[2022-04-27 06:57] LABS: Blood Urea Nitrogen* 9 mg/dL (7-30); Carbon Dioxide* 23 mmol/L (20-32); Glucose* 63 mg/dL (60-115)
[2022-04-27 07:00] LABS: C Reactive Protein* 1.2 mg/dL (0.5-1.0)
[2022-04-27 07:30] VITALS: BP 128/67; PULSE 60; RESP 16; TEMP 36.7; O2SAT 96
--- NOTE | 2022-04-27 07:55 | PM.GSPN ---
Subjective Subjective Date Seen: 04/27/22 Interval history: Patient was uncomfortable overnight and started to pass gas in the morning. Denies nausea vomiting. She continues to ambulate. Exam Narrative: Exam Narrative: Abdomen is still mildly distended, soft, not tender to palpation. Const: Vital Signs, click to edit/add: Vital Signs - 24 hr 04/26/22 11:00 04/26/22 15:00 04/26/22 15:20 Temperature 97.9 F 97.7 F Pulse Rate [Right] 66 65 Respiratory Rate 16 18 Blood Pressure [Le ft Arm] 122/73 144/75 H Pulse Oximetry 96 97 97 Oxygen Delivery Me thod Room Air Room Air Room Air 04/26/22 19:00 04/26/22 23:00 04/26/22 23:00 Temperature 97.7 F Pulse Rate [Right] 64 64 Respiratory Rate 16 16 16 Blood Pressure [Le ft Arm] 155/72 H Pulse Oximetry 95 95 Oxygen Delivery Me thod Room Air Room Air 04/26/22 23:00 04/27/22 03:00 Temperature 97.7 F 97.9 F Pulse Rate [Right] 65 80 Respiratory Rate 16 16 Blood Pressure [Le ft Arm] 138/71 129/69 Pulse Oximetry 95 95 Oxygen Delivery Me thod Room Air Room Air Progress Note: A&P Assessment and plan (1) SBO (small bowel obstruction): Problem details: - history of partial colectomy in 2010 for tubulovillous adenoma of the colon + incidental resection of a serous cystadenoma of the ovary - patient remains NPO, has not required NG placement - ambulating - general surgery aware of patient, appreciate their input. No surgical needs anticipated at this time Status: Acute Assessment and Plan: 71-year-old female admitted to the hospital with small-bowel obstruction. Patient was started to pass gas today in the morning. Her abdomen is still mildly distended. I will advance her to sips of clears and will continue with conservative therapy. I discussed with the patient that 1 of my partners will see her tomorrow on rounds.
[2022-04-27] MEDS: SODIUM CHLORIDE 0.9 % (FLUSH) 10 ML SYRINGE 5 ML IVF (09:00)
[2022-04-27 11:00] VITALS: BP 133/75; PULSE 65; RESP 16; TEMP 36.4; O2SAT 97
--- NOTE | 2022-04-27 13:35 | PC.NURSE ---
Pt calm. pleasant and cooperative during shift. Pt walked hallways frequently through out shift. Pt has reported no pain through out shift. Pt independent and completed shower. Pt's visited during shift. Pt has had 2 bowel movements through out shift. Pt to be discharged today at 5pm.
[2022-04-27 15:00] VITALS: BP 136/78; PULSE 80; RESP 16; TEMP 36.6; O2SAT 96
--- NOTE | 2022-04-27 15:04 | P.DS_ITS ---
DS: Providers Provider Date Seen: 04/27/22 Date of admission: 04/23/22 23:46 Primary care physician: Not a Local Provider Admitting Clinician: Anton Mccabe MD Consults: 04/23/22 23:46 Consult to Nutrition [CONS] Routine Comment: Reason for consult:: Miscellaneous 04/23/22 23:52 Consult to Physician [CONS] Routine Comment: Consulting Provider: Anahi Boston Has provider been notified: Yes Attending Physician on discharge: Elina Murray MD [place] [place] Hospitalist Date of Discharge: 04/27/22 DS: Diagnosis Discharge Diagnosis (1) SBO (small bowel obstruction): Status: Acute Problem details: - history of partial colectomy in 2010 for tubulovillous adenoma of the colon + incidental resection of a serous cystadenoma of the ovary - patient did well with conservative care. She did not need an NG tube. She was supported on IV fluids, analgesics and antiemetics. (2) Tubulovillous adenoma of colon: Status: Acute Problem details: s/p resection 2009 DS: Summary Hospital Course Hospital Course: HOSPITALIST DISCHARGE SUMMARY ATTENDING PHYSICIAN: Elina Murray MD FINAL DIAGNOSIS: Small-bowel obstruction HOSPITAL FOLLOWUP ISSUES: P.r.n. PCP/general surgery - if there is a recurrent small-bowel obstruction further care via inpatient Medicine and/or General surgery is indicated. REFERRALS WHILE ADMITTED: None REFERRALS AFTER DISCHARGE: None BRIEF HOSPITAL COURSE: Catrachita is a 71-year-old who comes in with abdominal pain. She was diagnosed with a small-bowel obstruction. She has never had a bowel obstruction before. She has a history of a colectomy many years ago for a benign colonic lesion. We managed her conservatively with IV fluids, analgesics and antiemetics. She walked the halls. She had a resolution by the day of discharge. She was passing gas and stool. We slowly advanced her diet. While she remains mildly distended, she is anxious to return home and continue her convalescence. SUBSTANTIVE NOTATIONS ON IMAGING, LAB, MICROBIOLOGY/PATHOLOGY STUDIES: Temperature 97.5? F. Blood pressure 133/75. Pulse rate 65. Respiratory rate 16. Pulse ox 97%. Labs revealed -mild neutropenia with a total white blood cell count at its lowest of 3.84 -normal electrolytes, normal renal function. -CRP down trended CT abdomen pelvis on admission Small-bowel obstruction in the setting of prior right hemicolectomy. Transition point in the right lower quadrant in the region of the ileocolonic anastomosis. No perforation or pneumatosis. DISCHARGE MEDICATIONS: See Reconciled list - SIGNIFICANT CHANGES: No meds prior to admission no meds after REVIEW OF SYSTEMS No new chest pain or dyspnea Pain controlled No voiding difficulties Tolerating diet challenge PHYSICAL EXAM: CONSTITUTIONAL: Walking the halls, pleasant. Insightful. VITAL SIGNS: see record. HEENT: Normocephalic, atraumatic. PERRL, EOMI, conjunctivae pink, no scleral icterus. Ears and nose externally normal. Pharynx normal. NECK: No JVD. No carotid bruit, no thyromegaly, no adenopathy. CHEST: Clear to auscultation bilaterally. HEART: S1 and S2 normal. Edema ABDOMEN: Soft, nontender. Normal bowel sounds. MUSCULOSKELETAL: No gross joint deformity or swelling. NEURO: Cranial nerves intact. Grossly intact. No asymmetric findings. SKIN: No rashes, petechiae, concerning changes PSYCHIATRIC: Mood euthymic. DISPOSITION: Home with spouse Time spent on discharge 37 minutes. Status at Discharge Functional status at discharge: independent ambulation Overall status at discharge: patient is progressing back to baseline Time Spent with Patient Time attestation: Total time spent providing and/or coordinating discharge services: Time spent: Greater than 30 minutes Exam Const: Vital Signs, click to edit/add: Vital Signs - 24 hr 04/26/22 15:20 04/26/22 19:00 04/26/22 23:00 Temperature 97.7 F 97.7 F Pulse Rate [Right] 65 64 64 Respiratory Rate 18 16 16 Blood Pressure [Le ft Arm] 144/75 H 155/72 H Pulse Oximetry 97 95 Oxygen Delivery Me thod Room Air Room Air 04/26/22 23:00 04/26/22 23:00 04/27/22 03:00 Temperature 97.7 F 97.9 F Pulse Rate [Right] 65 80 Respiratory Rate 16 16 16 Blood Pressure [Le ft Arm] 138/71 129/69 Pulse Oximetry 95 95 95 Oxygen Delivery Me thod Room Air Room Air Room Air 04/27/22 07:30 04/27/22 07:30 04/27/22 11:00 Temperature 98.0 F 97.5 F L Pulse Rate [Right] 60 65 Respiratory Rate 16 16 Blood Pressure [Le ft Arm] 128/67 133/75 Pulse Oximetry 96 96 97 Oxygen Delivery Me thod Room Air Room Air Room Air DS: Data Data Completed and Pending Labs on day of discharge: Labs from last 24 hours 04/27/22 04/27/22 06:16 06:16 WBC 4.26 L RBC 3.86 L Hgb 12.0 Hct 35.0 MCV 91 MCH 31 MCHC 34 RDW Coeff of Nadeem 11.7 Plt Count 189 Neut % (Auto) 60.8 Lymph % (Auto) 19.5 L [place] % (Auto) 17.1 H Eos % (Auto) 1.2 Baso % (Auto) 0.2 Neut # (Auto) 2.60 Lymph # (Auto) 0.80 L [place] # (Auto) 0.70 Eos # (Auto) 0.10 Baso # (Auto) 0.00 Sodium 136 Potassium 4.0 Chloride 104 Carbon Dioxide 23 BUN 9 Creatinine 0.5 Estimated Creat Clear 49.00 Estimated GFR 101 Glucose 63 Calcium 8.0 L C-Reactive Protein 1.2 H Discharge Plan Discharge Disposition: Home, Self-Care Date of Admission: 04/23/22 23:46 Consulting Providers: Anahi Boston Primary Care Provider: Provider,Not a Local Condition: Improved Anticipated Discharge Date/Time: 04/27/22 17:00 Discharge Medications: No Action No Known Home Medications Discharge Orders: Discharge Order (Routine); Ordered 04/27/22 Ordered By: Elina Murray Patient Education: Bowel Obstruction (DC) Additional Instructions: You can travel to [place] early next week F/U with your doc in [place] as needed Activity Level: Activity as Tolerated Discharge Diet: Full Liquid Diet Detail: stay with clears and liquids for 24 hours; eat bland and small meals for 2-3 more days. Follow Up Appointments: Provider,Not a Local [Primary Care Provider] - (PRN) Forms: [employer] Info Instructions
[2022-04-27] MEDS: ONDANSETRON ODT 4 MG TAB PO (15:37)
[2022-04-27 18:00] VITALS: RESP 18
--- NOTE | 2022-04-27 18:58 | PC.NURSE ---
DISCHARGE NOTE: Pt had a bout of emesis around 1530, PRN Zofran given and MD updated, pt ultimately decided she would like to d/c home with prescription for Zofran as well as taking her diet advancement slow. Pt pleasant, A&O. VSS on RA. PRN Zofran given after emesis, and pt denied nausea thereafter and had no further emesis. Pt given written and verbal d/c instructions, acknowledged understanding. IV removed with catheter intact. Pt denies pain. Pt up independent and walked independently to her vehicle with her . All belongings sent with patient.
--- NOTE | 2022-04-28 16:02 | P.EN_ITS ---
Chart Event Note Date Seen: 04/27/22 Chart Event Note: To Whom It May Concern: Mrs. Catrachita Roman was evaluated by the [facility] Emergency Room on 04/23/2022. She had an acute medical condition and admission to our acute care hospital was recommended. She was admitted from 04/23/2022 through 04/27/2022. She was unable to travel during these dates. It was medically necessary for her to be hospitalized. Catrachita informs me that she was supposed to travel back to [place] via commercial airlines. She informs me that she purchased trip insurance. Please work with Catrachita regarding her travel benefits. If you have any concerns regarding this information, feel free to call our hospital at [phone]. Very respectively, Philomena Murray MD
== END 2022-04-27 18:13 | disposition home or self-care (01) | DRG 390 ==
LOC: ED 21:43 → MEDSURG 23:11
PROVIDERS: Family Medicine; Admitting Provider Internal Medicine; Emergency Provider Family Medicine; Visit Provider Internal Medicine
DX: K56.609 Unspecified intestinal obstruction, unspecified as to partial versus complete obstruction (principal); E86.0 Dehydration; G47.33 Obstructive sleep apnea (adult) (pediatric); D70.9 Neutropenia, unspecified
CPT/HCPCS: 36415; 74177; 80048; 80053; 80076; 81001; 83605; 83690; 85025; 86140; 87635; 99285; A9270; J1170; J1650; J2405; J7030; J7120; Q9967

== ENCOUNTER 2022-07-19 08:18 | Outpatient (CLI) | payer MEDICARE, SELFPAY | END 2022-07-19 08:19 | disposition home or self-care (01) | PROVIDERS: Visit Provider Family Medicine | DX: Z00.00 Encounter for general adult medical examination without abnormal findings (principal); E87.6 Hypokalemia; E86.0 Dehydration; Z13.6 Encounter for screening for cardiovascular disorders | CPT/HCPCS: 80053; 80061; 86140 ==

== ENCOUNTER 2022-07-28 09:41 | Outpatient (CLI) | payer MEDICARE, SELFPAY ==
--- NOTE | 2022-07-28 10:00 | CRLHL7_ITS ---
For Patients: As a result of the Century Cures Act, medical imaging exams and procedure reports are released immediately into your electronic medical record. You may view this report before your referring provider. If you have questions, please contact your health care provider. Indication: Pulmonary nodule Technique: Noncontrast CT chest Please note that all CT scans at this facility use dose modulation, iterative reconstruction, and/or weight-based dosing when appropriate to reduce radiation dose to as low as reasonably achievable. Comparison: CT abdomen 04/23/2022 Findings: 9 millimeter low-density right thyroid lobe nodule. Vascular calcifications. Upper abdomen unremarkable. No mediastinal, hilar or axillary adenopathy. Chronic wedging of T12. 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 Linear subsegmental scarring within the right middle lobe noted. Andrew fissural nodule noted anterior right lung measuring 8 millimeters. Additional perifissural nodule mid right lung measuring 7 millimeters. No suspicious pulmonary nodules. Lungs otherwise clear. Impression: Benign andrew fissural nodules on the right. No further follow-up indicated. Please note that all CT scans at this facility use dose modulation, iterative reconstruction, and/or weight-based dosing when appropriate to reduce radiation dose to as low as reasonably achievable. Dictated by Efrem London MD @ 07/29/2022 6:04:37 PM (Electronically Signed)
== END 2022-07-28 09:42 | disposition home or self-care (01) ==
LOC: CT 09:42
PROVIDERS: PCP Family Medicine; Visit Provider Family Medicine
DX: R91.1 Solitary pulmonary nodule (principal)
CPT/HCPCS: 71250

== ENCOUNTER 2022-08-08 14:41 | Outpatient (CLI) | payer MEDICARE, SELFPAY ==
--- NOTE | 2022-08-08 15:00 | CRLHL7_ITS ---
For Patients: As a result of the Cures Act, medical imaging exams and procedure reports are released immediately into your electronic medical record. You may view this report before your referring provider. If you have questions, please contact your health care provider. INDICATION: Thyroid nodule COMPARISON: CT chest 07/28/2022 TECHNIQUE: Walls scale and color Doppler images were acquired of the thyroid gland. FINDINGS: The thyroid gland demonstrates heterogeneous echogenicity and has a smooth outer contour. The right lobe measures 4.4 x 1.4 x 1.3 cm and the left lobe measures 4.0 x 1.2 x 1.2 cm in size. The isthmus measures 3 millimeters. Hypoechoic circumscribed nodule right thyroid lobe lower pole measuring 1.3 x 0.8 x 0.8 cm. Solid and cystic nodule present within the midportion of the right thyroid lobe measuring 10 x 5 x 9 millimeters. Near isoechoic nodule left thyroid lobe measuring 1.4 x 0.8 x 0.8 cm. The color Doppler images demonstrate normal vascularity. There is no evidence of cervical lymphadenopathy or parathyroid mass. IMPRESSION: Bilateral thyroid nodules measuring up to 1.4 cm. Follow-up in 1 year recommended. No FNA indicated at this time. Dictated by Efrem London MD @ 08/08/2022 3:43:18 PM (Electronically Signed)
== END 2022-08-08 14:42 | disposition home or self-care (01) ==
LOC: US 14:42
PROVIDERS: PCP Family Medicine; Visit Provider Family Medicine
DX: E04.1 Nontoxic single thyroid nodule (principal)
CPT/HCPCS: 76536

== ENCOUNTER 2022-10-05 13:18 | Outpatient (CLI) | payer MEDICARE, SELFPAY ==
--- NOTE | 2022-10-05 13:30 | CRLHL7_ITS ---
For Patients: As a result of the Century Cures Act, medical imaging exams and procedure reports are released immediately into your electronic medical record. You may view this report before your referring provider. If you have questions, please contact your health care provider. DXA BONE MINERAL DENSITY STUDY Reason for exam: Screening. Current height (in): 66. Weight (lb): 136. Menopause age: 50. Ethnicity: White. 1. Have you had a previous hip or vertebral fracture? No. 2. Have you had any fractures during your adult life which did not result from significant trauma (e.g., auto accident)? No. 3. Did either of your parents have a hip fracture? No. 4. Do you smoke? No. 5. Have you ever taken Glucocorticoids? No. 6. Do you have rheumatoid arthritis? No. 7. Do you have secondary osteoporosis? No. 8. Do you drink 3 or more alcoholic drinks per day? No. 9. Are you being treated for osteoporosis? No. 10. Have you ever taken any of the following medications: Actonel, Evista, Fosamax, Miacalcin, Reclast, Boniva, Forteo, HRT (i.e., estrogen/hormone therapy), Protelos, Prolia, Vitamin D, Calcium, other ??? please specify. ANSWER: Yes, vitamin D and calcium. 11. Do you have any of the following medical conditions: Anorexia or bulimia, asthma or emphysema, end stage renal disease, hyperparathyroidism, any seizure disorders, cancer, inflammatory bowel diseases, hysterectomy, other ??? please specify. ANSWER: No. 12. What was your maximum height (inches)? 66.5. 13. Do you perform weight bearing exercise regularly? Yes. 14. Do you regularly consume dairy products? Yes. 15. Do you drink caffeinated beverages? Yes. If female: 16. At what age did your period start? 14. 17. Are you premenopausal? No. 18. How many full-term pregnancies have you had? 3. 19. Have you ever missed your period for more than 6 months in a row (not including or menopause)? No. TECHNIQUE: Bone mineral density study was performed using the [employer]. FINDINGS: The results of the study expressed as bone mineral density (BMD) are as follows: Lumbar spine L1 to L4: BMD: 0.831 g/cm2. T-score: -2.0. Z-score: 0.2 Neck Left: BMD: 0.800 g/cm2. T-score: -0.4. Z-score: 1.4 Right: BMD: 0.725 g/cm2. T-score: -1.1. Z-score: 0.8 Total Left: BMD: 0.811 g/cm2. T-score: -1.1. Z-score: 0.5 Right: BMD: 0.765 g/cm2. T-score: -1.4. Z-score: 0.1 IMPRESSION: Osteopenia. FRAX 10-year Fracture Risk Major Osteoporotic Fracture: 8.6% Hip Fracture: 1.1% Reported Risk Factors: [place] () Neck BMD=0.725, BMI= 22.0 Efrem London M.D. Diagnostic Radiologist [email or web address] AUGUSTINE/lorenzo ventura/Dictated by: Efrem London MD @ 10/05/2022 2:04:00 PM (Electronically Signed)
--- NOTE | 2022-10-05 14:00 | CRLHL7_ITS ---
For Patients: As a result of the Century Cures Act, medical imaging exams and procedure reports are released immediately into your electronic medical record. You may view this report before your referring provider. If you have questions, please contact your health care provider. BILATERAL SCREENING MAMMOGRAM WITH COMPUTER-AIDED DETECTION AND TOMOSYNTHESIS TECHNIQUE: CC and MLO views were obtained. These mammographic images have been obtained using full-field digital technique. These mammographic images were interpreted with the benefit of computer-aided detection. Breast tomosynthesis was used in this interpretation. COMPARISON FILM: 05/04/17, 09/17/12, 12/06/09. FINDINGS: There are scattered areas of fibroglandular density. IMPRESSION: There is no radiographic evidence for malignancy. ASSESSMENT: BI-RADS Category 1: Negative RECOMMENDATION: Routine screening mammogram in 1 year. A lay language report of this examination will be provided to the patient. EFREM TAYLOR M.D. Diagnostic Radiologist [email or web address] AUGUSTINE/tony Transcribed: 10/06/2022, 3:[address]/Dictated by: Efrem Taylor MD @ 10/06/2022 9:48:00 AM (Electronically Signed)
== END 2022-10-05 13:19 | disposition home or self-care (01) ==
LOC: RAD 13:18
PROVIDERS: PCP Family Medicine; Visit Provider Family Medicine
DX: Z12.31 Encounter for screening mammogram for malignant neoplasm of breast (principal); Z13.820 Encounter for screening for osteoporosis; M85.89 Other specified disorders of bone density and structure, multiple sites; Z78.0 Asymptomatic menopausal state
CPT/HCPCS: 77063; 77067; 77080

== ENCOUNTER 2023-08-08 10:48 | Outpatient (CLI) | payer MEDICARE, SELFPAY ==
--- OUTSIDE RECORDS SUMMARY | 2023-08-08 10:52 | XMS_ITS | Data Portability ---
Author Name Unknown Address [address] [place] [address] Phone [phone] Organization [place] [facility], [facility], [facility] [place] Address [address] [facility] [place] [address] Care Team Providers Care Oracle Fusion Consultant Name Role Phone RONALD VILLALOBOS General Surgeon Assessment No assessment recorded. Plan of Treatment Reminders Order Date Submit Date Provider Last Modified By Organization Details Last Modified Time Details Appointments None record ed. Lab None record ed. Referral None record ed. Procedures None record ed. Surgeries None record ed. Imaging None record ed. Medication Orders None record ed. Patient TargetsNo targets recorded. Patient InstructionsNo instructions recorded. Reason for Referral None Reported. Results Created Date Observation Date Name Description Value Unit Range Abnormal Flag LastModifiedBy Organization Detail LastModifiedTime Result Notes None recorded. Medical Equipment None Reported. Medications Name Sig Start Date Stop Date Status Note LastModified by Organization Details LastModified Time hydrocodone 10 mg-acetamino phen 325 mg tablet TAKE 1 TABLET BY MOUTH EVERY 6 HOURS NEEDED FOR PAIN active Not Available Not Available No t Available docusate sodium 100 mg capsule TAKE 1 CAPSULE BY MOUTH EVERY DAY NEEDED FOR CONSTIPATIO N active Not Available Not Available No t Available ondansetron 4 mg disintegrati ng tablet DISSOLVE 1 TABLET BY MOUTH EVERY 8 HOURS. active Not Available Not Available No t Available Vitals Date Recorded Body height Body mass index (BMI) Body weight Heart rate Body temperature Systolic blood pressure Diastolic blood pressure Provider Name and Address Organization Details Last Updated DateTime 3 167.64 cm 21.3 kg/m2 35464.1 9 g 82 /min 96.5 [degF] 146 mm[Hg] 76 mm[Hg] Nicolasa james [place] [facility] - [facility], [facility] 3 11:32:12 Date Recorded Body height Body mass index (BMI) Body weight Heart rate Body temperature Oxygen saturation Oxygen saturation in Arterial blood by Pulse oximetry Systolic blood pressure Diastolic blood pressure Provider Name and Address Organization Details Last Updated DateTime 3 167.64 cm 21.3 kg/m2 32818.1 9 g 87 /min 98.2 [degF] 97 % 97 % 130 mm[Hg] 78 mm[Hg] Mis Diaz MA [place] [facility], [facility] 3 12:30:49 Social History None recorded. Functional Status None recorded. Mental Status None recorded. Family History Nothing Reported. Medical History No medical history recorded. Gynecological HistoryNo gynecological history recorded. Obstetrics History GPAL:G 0 P 0 0 0 0 Past Encounters Encounter ID Performer Location Encounter Start Date Encounter Closed Date Diagnosis/Indication Diagnosis SNOMED-CT Code [id number] MD LEXI [facility] [address] [place] [address] 05/12/2022 11:19:39 05/12/2022 12:21:24 Strangulated internal hernia [id number] MD [facility] [address] [place] [address] 05/16/2022 12:05:51 05/22/2022 12:43:59 Strangulated internal hernia [id number] Health Concerns Section Related Observation LastModified by Organization Detai ls LastModified Time None Recorded Concern Status LastModified by Organization Details LastModified Time None Recorded Advance Directives Directive None Recorded Payers Encounter Date Sequence Insurance Name Policy Number Policy Kenney Covered Member ID Kenney Member ID Guarantor Name 05/16/2022 1 P3 [facility] (MEDICARE REPLACEMENT/ ADVANTAGE - HMO) [id number] Catrachita Roman [id number] Catrachita Roman 05/12/2022 1 P3 [facility] (MEDICARE REPLACEMENT/ ADVANTAGE - HMO) [id number] Catrachita Roman [id number] Catrachiat Roman Notes Date Note Type Note Provider Name and Address Organization Details Recorded Time 05/12/2022 text/html HPI Notes: Catrachita is 1 week status post exploratory laparotomy and resection of bowel related to an internal hernia from prior scar tissue. She previously had a right hemicolectomy. We removed about 10 inches of distal small bowel, and 2 inches of mid transverse colon with new primary ileocolic anastomosis. Pathology was reviewed and benign. Expected findings as noted. She has no acute concerns. She has been having 3-4 loose bowel movements daily. No blood in her stool. Tolerating her regular diet. Pain is well controlled. She has little to no pain at this point. No recent fevers, night sweats, chills. No chest pain or dyspnea. Ronald Villalobos MD [address], [place], [address], [facility], [facility] 05/12/2022 11:52:29 05/16/2022 text/html HPI Notes: Catrachita is 11 days status post exploratory laparotomy and resection of bowel related to an internal hernia from prior scar tissue. She previously had a right hemicolectomy. We removed about 10 inches of distal small bowel, and 2 inches of mid transverse colon with new primary ileocolic anastomosis. Pathology was reviewed and benign. Expected findings as noted. Bowel movements are improving and returned to normal. She is tolerating a regular diet. No pain. No fevers, night sweats, chills. Ricki were left in place from her last visit as it was early to remove. Ronald Villalobos MD [address], [place], [address], [facility] [place] [facility], [facility] 05/16/2022 12:47:35 OBGyn Episode No OBEpisode recorded.
--- NOTE | 2023-08-08 11:00 | US_ITS ---
Patient: JAMIE STRONG Facility:?[facility] Patient ID:?[id number] Site Patient ID:?[id number]. Site :?1950 Study:?US-Thyroid -08/08/2023 11:42:39 AM Ordering Physician:?Taryn Mann Final Report: INDICATION: Thyroid nodule COMPARISON: 08/08/2022 TECHNIQUE: Walls scale and color Doppler images were acquired of the thyroid gland. FINDINGS: Hypoechoic nodule left thyroid lobe measures 12 x 10 x 6 millimeters, TR 4, previously measuring 14 x 8 x 8 millimeters. Heterogeneous nodule right thyroid lobe measures 10 x 9 x 6 millimeters, previously measuring 10 x 5 x 9 millimeters, TR 3. Solid hypoechoic nodule right thyroid lobe measures 1.9 x 1.0 x 1.2 cm, TR 4, previously measuring 1.3 x 0.8 x 0.8 cm. Hypoechoic nodule upper pole right thyroid lobe, TR 4, measures 5 x 7 x 4 millimeters. Thyroid echotexture is heterogeneous. The right lobe measures 4.2 x 1.9 x 1.6 cm and the left lobe measures 4.2 x 1.5 x 1.5 cm in size. Isthmus measures 4 millimeters. The color Doppler images demonstrate increased vascularity. There is no evidence of cervical lymphadenopathy or parathyroid mass. IMPRESSION: Increased size of TR 4 nodule right thyroid lobe now measuring 1.9 cm. FNA recommended. Dictated by Efrem London MD @ 08/09/2023 12:35:26 PM Signed by:?Efrem London MD @08/09/2023 12:35:26 PM (Electronic Signature
== END 2023-08-08 10:49 | disposition home or self-care (01) ==
LOC: US 10:48
PROVIDERS: PCP Family Medicine; Visit Provider Family Medicine
DX: E04.1 Nontoxic single thyroid nodule (principal)
CPT/HCPCS: 76536

== ENCOUNTER 2023-09-11 08:03 | Outpatient (CLI) | payer MEDICARE, SELFPAY ==
--- OUTSIDE RECORDS SUMMARY | 2023-09-11 08:05 | XMS_ITS | Data Portability ---
Author Organization [place] - [facility] - [facility], [facility], [facility] Address [address] [place] [address] Care Team Providers Care Nuclear Medicine Pet Ct Technologist Name Role Phone RONALD VILLALOBOS General Surgeon [...] Updated DateTime 3 167.64 cm 21.3 kg/m2 38593.1 9 g 82 /min 96.5 [degF] 146 mm[Hg] 76 mm[Hg] Nicolasa james MA [place] [facility] - [facility] 3 11:32:12 Date Recorded Body height Body mass index (BMI) Body weight Heart rate Body temperature Oxygen saturation Oxygen saturation in Arterial blood by Pulse oximetry Systolic blood pressure Diastolic blood pressure Provider Name and Address Organization Details Last Updated DateTime 3 167.64 cm 21.3 kg/m2 12614.1 9 g 87 /min 98.2 [degF] 97 % 97 % 130 mm[Hg] 78 mm[Hg] Mis Diaz MA [place] - [facility], [facility] 3 12:30:49 Social History None recorded. Functional Status None recorded. Mental Status None recorded. Family History Nothing Reported. Medical History No medical history recorded. Gynecological HistoryNo gynecological history recorded. Obstetrics History GPAL:G 0 P 0 0 0 0 Past Encounters Encounter ID Performer Location Encounter Start Date Encounter Closed Date Diagnosis/Indication Diagnosis SNOMED-CT Code [id number] MD [facility]I [facility] [address] [place] [address] 05/12/2022 11:19:39 05/12/2022 12:21:24 Strangulated internal hernia [id number] MD [facility] [address] [place] [address] 05/16/2022 12:05:51 05/22/2022 12:43:59 Strangulated internal hernia [id number] Health Concerns Section Related Observation LastModified by Organization Detai ls LastModified Time None Recorded Concern Status LastModified by Organization Details LastModified Time None Recorded Advance Directives Directive None Recorded Payers Encounter Date Sequence Insurance Name Policy Number Policy Kenney Covered Member ID Kenney Member ID Guarantor Name 05/16/2022 1 P3 [facility] (MEDICARE REPLACEMENT/ ADVANTAGE - HMO) [id number] Catrachita Olmos Abel [id number] Catrachita Abel 05/12/2022 1 P3 [facility] (MEDICARE REPLACEMENT/ ADVANTAGE - HMO) [id number] Catrachita Olmos Abel [id number] Catrachita Hernándezrozdahiana Notes Date Note Type Note Provider Name [...] pain or dyspnea. Ronald Villalobos MD [address], [place], [address], [facility] [place] [facility], [facility] 05/12/2022 11:52:29 05/16/2022 text/html HPI Notes: [...] early to remove. Ronald Villalobos MD [address], [place], [address], [facility] - [facility], [facility] 05/16/2022 12:47:35 OBGyn Episode No OBEpisode recorded.
--- NOTE | 2023-09-11 08:15 | CRLHL7_ITS ---
For Patients: As a result of the Century Cures Act, medical imaging exams and procedure reports are released immediately into your electronic medical record. You may view this report before your referring provider. If you have questions, please contact your health care provider. INDICATION : Right thyroid nodule. TECHNIQUE : Ultrasound-guided fine needle aspiration of thyroid nodule. Comparison : 08/08/2023 FINDINGS : PROCEDURE: After the informed consent and time-out, multiple fine needle aspirations were obtained from the thyroid nodule. Fine needle performed. 25 gauge needles were used. Lidocaine was used for local anesthesia. The preliminary cytology was adequate for interpretation. Real-time imaging was used for guidance and needle placement. Post imaging ultrasound demonstrates no immediate complication. IMPRESSION : Successful fine needle aspiration of right thyroid lobe nodule. Dictated by Efrem London MD @ 09/12/2023 10:59:50 AM (Electronically Signed)
== END 2023-09-11 08:04 | disposition home or self-care (01) ==
LOC: US 08:03
PROVIDERS: PCP Family Medicine; Visit Provider Family Medicine
DX: E04.1 Nontoxic single thyroid nodule (principal)
CPT/HCPCS: 10005; 88173

== ENCOUNTER 2023-10-16 07:50 | Outpatient (CLI) | payer MEDICARE, SELFPAY | END 2023-10-16 07:51 | disposition home or self-care (01) | PROVIDERS: Visit Provider Family Medicine | DX: Z00.00 Encounter for general adult medical examination without abnormal findings (principal); E87.6 Hypokalemia; E04.1 Nontoxic single thyroid nodule; D72.819 Decreased white blood cell count, unspecified; Z11.59 Encounter for screening for other viral diseases; Z13.6 Encounter for screening for cardiovascular disorders | CPT/HCPCS: 80053; 80061; 84443; 86803 ==

== ENCOUNTER 2023-12-25 07:59 | Outpatient (CLI) | payer MEDICARE, SELFPAY ==
--- OUTSIDE RECORDS SUMMARY | 2023-12-25 08:02 | XMS_ITS | Data Portability ---
Author Organization [place] - [facility] - [facility], [facility], [facility] Address [address] [place] [address] Care Team Providers Care Back Filler Operator Name Role Phone RONALD VILLALOBOS General Surgeon [...] Name Description Value Unit Range Abnormal Flag Note LastModifiedBy Organization Detail LastModifiedTime Result Notes None [...] Updated DateTime 3 167.64 cm 21.3 kg/m2 69608.1 9 g 82 /min 96.5 [degF] 146 mm[Hg] 76 mm[Hg] Nicolasa james MA [place] - [facility] - [facility] [employer] [facility] 3 11:32:12 Date Recorded Body height Body mass index (BMI) Body weight Heart rate Body temperature Oxygen saturation Oxygen saturation in Arterial blood by Pulse oximetry Systolic blood pressure Diastolic blood pressure Provider Name and Address Organization Details Last Updated DateTime 3 167.64 cm 21.3 kg/m2 10630.1 9 g 87 /min 98.2 [degF] 97 % 97 % 130 mm[Hg] 78 mm[Hg] Mis Diaz MA [place] - [facility] [place] [facility], [facility] 3 12:30:49 Social History None recorded. Functional Status None recorded. Mental Status None recorded. Family History Nothing Reported. Medical History No medical history recorded. Gynecological HistoryNo gynecological history recorded. Obstetrics History GPAL:G 0 P 0 0 0 0 Past Encounters Encounter ID Performer Location Encounter Start Date Encounter Closed Date Diagnosis/Indication Diagnosis SNOMED-CT Code Diagnosis ICD10 Code [id number] MD [facility]I [facility] [address] [place] [address] 05/12/2022 11:19:39 05/12/2022 12:21:24 Strangulated internal hernia [id number] K46.0 [id number] MD [facility]I [facility] [address] [place] [address] 05/16/2022 12:05:51 05/22/2022 12:43:59 Strangulated internal hernia [id number] K46.0 Health Concerns Section Related Observation LastModified by Organization Detai ls LastModified Time None Recorded Concern Status LastModified by Organization Details LastModified Time None Recorded Advance Directives Directive None Recorded Payers Encounter Date Sequence Insurance Name Policy Number Policy Kenney Covered Member ID Kenney Member ID Guarantor Name 05/12/2022 1 P3 [facility] (MEDICARE REPLACEMENT/ ADVANTAGE - HMO) [id number] Catrachita Olmos Abel [id number] Catrachita Abel 05/16/2022 1 P3 [facility] (MEDICARE REPLACEMENT/ ADVANTAGE - HMO) [id number] Catrachita Olmos Abel [id number] Catrachita Abel Notes Date Note Type Note Provider Name [...] MD [address], [place], [address], [facility] [employer], [facility] 05/12/2022 11:52:29 05/16/2022 text/html HPI Notes: [...] No pain. No fevers, night sweats, chills. [place] were left in place from her last visit as it was early to remove. Ronald Villalobos MD [address], [place], [address], [facility], [facility] 05/16/2022 12:47:35 OBGyn Episode No OBEpisode recorded.
--- NOTE | 2023-12-25 08:15 | CRLHL7_ITS ---
For Patients: As a result of the Century Cures Act, medical imaging exams and procedure reports are released immediately into your electronic medical record. You may view this report before your referring provider. If you have questions, please contact your health care provider. BILATERAL SCREENING MAMMOGRAM WITH COMPUTER-AIDED DETECTION AND TOMOSYNTHESIS TECHNIQUE: CC and MLO views were obtained. These mammographic images have been obtained using full-field digital technique. These mammographic images were interpreted with the benefit of computer-aided detection. Breast Tomosynthesis was used in this interpretation. COMPARISON FILM: 10/05/22, 05/04/17, 09/17/12. FINDINGS: There are scattered areas of fibroglandular density IMPRESSION: There is no radiographic evidence for malignancy. ASSESSMENT: BI-RADS Category 1: Negative RECOMMENDATION: Routine screening mammogram in 1 year. A lay language report of this examination will be provided to the patient. Efrem London M.D. Diagnostic Radiologist [email or web address] BERTRAND/Dictated by: Efrem London MD @ 12/25/2023 9:01:00 AM (Electronically Signed)
== END 2023-12-25 08:00 | disposition home or self-care (01) ==
PROVIDERS: PCP Family Medicine; Visit Provider Family Medicine
DX: Z12.31 Encounter for screening mammogram for malignant neoplasm of breast (principal)
CPT/HCPCS: 77063; 77067

== ENCOUNTER 2025-03-10 08:44 | Outpatient (CLI) | payer MEDICARE, SELFPAY | END 2025-03-10 08:45 | disposition home or self-care (01) | LOC: NFLDREF 03-15 17:11 | PROVIDERS: PCP Family Medicine; Referring Provider Family Medicine; Visit Provider Family Medicine | DX: Z00.00 Encounter for general adult medical examination without abnormal findings (principal); M85.80 Other specified disorders of bone density and structure, unspecified site | CPT/HCPCS: 80053; 80061; 82306 ==